=== PATIENT | female | born 1980 | race Caucasian/White ===

== ENCOUNTER 2017-03-27 20:57 | Emergency (ER) | payer BC ==
[~2017-03-27] VITALS: Ht 157.5 cm; Wt 70.0 kg
[~2017-03-27 20:57] MED LIST: ACET-915 PO; ATEN-51 PO; CEPH-443 PO; IBUP-1542 PO; LEVO125T58; METH10TA97 PO; NITR-58 PO
[2017-03-27 21:08] VITALS: Ht 157.5 cm; Wt 70.0 kg
[2017-03-27] MEDS ORDERED: KETOROLAC 30 MG INJ IM STA (23:14)
[2017-03-27] MEDS ORDERED: TRAM50TA2 PO (23:16)
[2017-03-27] MEDS ORDERED: IBUP-1542 PO (23:17)
--- NOTE | 2017-03-27 23:25 | ERD ---
ER Documentation Chief Complaint Date/Time DATE: 03/27/17 TIME: 23:19 Chief Complaint WORSENING LOWER RIGHT BACK PAIN RADIATING TO LEG TONIGHT. HPI Patient is a 36-year-old female with past medical history of hypothyroidism, s/ p cholecystectomy who presents to the emergency department with lower back pain. Patient states pain has been ongoing for the last year. She does not a the pain was significantly worse. Patient states the pain originates in her lower back and radiates down her right leg. Patient says she has been going to physical therapy for the last month and a half. Patient denies any saddle anesthesia, stool incontinence, urinary incontinence, fever, chills, dysuria, frequency, urgency or hematuria. She denies any recent falls or trauma. No recent travel. ROS All systems reviewed and are negative except as per history of present illness. Medications Home Meds Active Scripts Ibuprofen* (Motrin*) 600 Mg Tab, 600 MG PO Q6, #30 TAB Prov:CHRISTINE CHILDERS PA-C 03/27/17 Tramadol HCl (Tramadol HCl) 50 Mg Tablet, 50 MG PO Q4 Y for PAIN, #15 TAB Prov:CHRISTINE CHILDERS PA-C 03/27/17 Ibuprofen* (Motrin*) 600 Mg Tab, 600 MG PO Q6, #20 TAB Prov:CANDICE MORTON NP 08/07/16 Nitrofurantoin Monohyd Macrocr* (Macrobid*) 100 Mg Capsr, 100 MG PO BID for 5 Days, CAP Prov:CANDICE MORTON NP 08/07/16 Cephalexin* (Keflex*) 500 Mg Capsule, 500 MG PO QID for 7 Days, CAP Prov:STEWART AMEZQUITA PA-C 07/19/16 Ibuprofen* (Motrin*) 600 Mg Tab, 600 MG PO Q6H Y for PAIN AND OR ELEVATED TEMP, #30 TAB Prov:STEWART AMEZQUITA PA-C 07/19/16 Ibuprofen* (Motrin*) 600 Mg Tab, 600 MG PO Q6, #30 TAB Prov:ROBERT MADSEN PA-C 07/04/16 Reported Medications Levothyroxine Sodium (Levothroid) 125 Mcg Tablet 02/15/13 Acetaminophen* (Tylenol*) 325 Mg Tab, 325 MG PO 05/23/12 Atenolol* (Atenolol*) 25 Mg Tablet, 25 MG PO 05/23/12 Methimazole* (Tapazole*) 10 Mg Tablet, 10 MG PO 05/23/12 [None] No Conflict Check 04/26/11 Allergies Allergies: Coded Allergies: codeine (Verified Allergy, Mild, TWITCHING OF FACE, 07/04/16) PMhx/Soc History of Surgery: Yes (cholecystectomy) Anesthesia Reaction: No Hx Neurological Disorder: No Hx Respiratory Disorders: No Hx Cardiac Disorders: No Hx Psychiatric Problems: No Hx Miscellaneous Medical Probl: Yes (hypothyroid (synthroid dose increased)) Hx Alcohol Use: No Hx Substance Use: No Hx Tobacco Use: No FmHx Family History: No diabetes Physical Exam Vitals Vital Signs Date Time Temp Pulse Resp B/P Pulse Ox O2 Delivery O2 Flow Rate FiO2 03/28/17 00:21 98.1 85 20 129/99 97 Room Air 03/27/17 21:08 99.4 122 18 148/86 97 Physical Exam GENERAL: Well-developed, well-nourished female. Appears in no acute distress. HEAD: Normocephalic, atraumatic. EYES: Pupils are equally reactive bilaterally. EOMs grossly intact. No conjunctival erythema. ENT: Moist mucous membranes. No uvula deviation. No kissing tonsils. NECK: Supple. No meningismus. Normal range of motion of the neck. LUNG: Clear to auscultation bilaterally. No rhonchi, wheezing, rales or coarse breath sounds. HEART: Regular rate and rhythm. No murmurs, rubs or gallops. ABDOMEN: No scars, ecchymosis or rashes noted. Soft, nontender, and nondistended. Positive bowel sounds in all four quadrants. No rebound tenderness , no guarding. (-) McBurney's point tenderness. No CVA tenderness. BACK: No midline tenderness. Tender palpation of the paraspinous muscles of the right lumbar spine. Positive straight leg raise of the right side. EXTREMITIES: Equal pulses bilaterally. No peripheral clubbing, cyanosis or edema. No unilateral leg swelling. NEUROLOGIC: Alert and oriented. Moving all four extremities without any difficulty. Normal speech. Steady gait. SKIN: Normal color. Warm and dry. No rashes or lesions. Results 24 hrs Current Medications Medications (Trade) Dose Ordered Sig/Margaret Route PRN Reason Start Time Stop Time Status Last Admin Dose Admin Ketorolac Tromethamine (Toradol) 30 mg ONCE STAT IM 03/27/17 23:14 03/27/17 23:15 DC 03/27/17 23:49 Procedures/MDM ED COURSE: The patient was stable throughout ED course. I kept the patient and/or family informed of laboratory and diagnostic imaging results throughout the ED course. MEDICATIONS GIVEN: Toradol IM Patient tolerated medication well with no adverse reactions. Patient reported improvement in pain. MEDICAL DECISION MAKING: This is a 28-year-old female presents with back pain 1 year. Patient states today the pain became significantly worse. Patient states pain radiates down her right leg.. Vital signs were reviewed. Patient was afebrile. Patient denied any saddle anesthesia, urinary incontinence, bowel incontinence, dysuria, hematuria, or recent trauma. Patient denied any falls or trauma, x-ray imaging was indicated at this time. Patient was given Toradol here in the ED for her pain. Given these findings, the patient's presentation is most consistent with lower back pain with sciatica. I have a much lower clinical concern for cauda equine syndrome, spinal fractures, epidural abscess, spinal metastases, osteomyelitis, aortic dissection, ruptured or leaking AA, DJD, UTI, pyelonephritis or nephrolithiasis. PRESCRIPTIONS: Tramadol, ibuprofen DISCHARGE: At this time, patient is stable for discharge and outpatient management. Patient was advised to follow-up with her primary care physician for referral to obtain an MRI on an outpatient basis. RICE therapy and ROM exercises were advised to avoid stiffness. I have instructed the patient to follow-up with his/ her primary care physician in 1-2 days. I have discussed with the patient the possibility of needing to see an 3d specialist for further workup and imaging if the pain persists. I have instructed the patient to promptly return to the ER for any new or worsening symptoms including increased pain, swelling, warmth, urinary incontinence, stool incontinence, weakness or numbness. The patient and/or family expressed understanding of and agreement with this plan. All questions were answered. Home care instructions were provided. Departure Diagnosis: Primary Impression: Back pain Back pain location: low back pain Chronicity: acute Back pain laterality: right Sciatica presence: with sciatica Sciatica laterality: sciatica of right side Qualified Code: M54.41 - Acute right-sided low back pain with right -sided sciatica Condition: Stable Patient Instructions: Back Pain W/ Sciatica Referrals: [facility] YOU HAVE RECEIVED A MEDICAL SCREENING EXAM AND THE RESULTS INDICATE THAT YOU DO NOT HAVE A CONDITION THAT REQUIRES URGENT TREATMENT IN THE EMERGENCY DEPARTMENT. FURTHER EVALUATION AND TREATMENT OF YOUR CONDITION CAN WAIT UNTIL YOU ARE SEEN IN YOUR DOCTORS OFFICE WITHIN THE NEXT 1-2 DAYS. IT IS YOUR RESPONSIBILITY TO MAKE AN APPOINTMENT FOR FOLOW-UP CARE. IF YOU HAVE A PRIMARY DOCTOR --you should call your primary doctor and schedule an appointment IF YOU DO NOT HAVE A PRIMARY DOCTOR YOU CAN CALL OUR PHYSICIAN REFERRAL HOTLINE AT IF YOU CAN NOT AFFORD TO SEE A PHYSICIAN YOU CAN CHOSE FROM THE FOLLOWING [facility] [address] [facility] [address] [facility] [address] [facility] [address] [facility] [address] [address] [facility] [address] [facility] [facility] [address] [facility]. [facility] YOU HAVE RECEIVED A MEDICAL SCREENING EXAM AND THE RESULTS INDICATE THAT YOU DO NOT HAVE A CONDITION THAT REQUIRES URGENT TREATMENT IN THE EMERGENCY DEPARTMENT. FURTHER EVALUATION AND TREATMENT OF YOUR CONDITION CAN WAIT UNTIL YOU ARE SEEN IN YOUR DOCTORS OFFICE WITHIN THE NEXT 1-2 DAYS. IT IS YOUR RESPONSIBILITY TO MAKE AN APPOINTMENT FOR FOLOW-UP CARE. IF YOU HAVE A PRIMARY DOCTOR --you should call your primary doctor and schedule and appointment IF YOU DO NOT HAVE A PRIMARY DOCTOR YOU CAN CALL OUR PHYSICIAN REFERRAL HOTLINE AT . IF YOU CAN NOT AFFORD TO SEE A PHYSICIAN YOU CAN CHOSE FROM THE FOLLOWING [facility]: [facility] [address] [place] [address] [facility] [address] [place] [address] [facility] [address] [place] [address] [facility] Hours: Mon-Fri 9:00 AM - 5:00 PM Additional Instructions: Call your primary care doctor TOMORROW for an appointment during the next 1-2 days.See the doctor sooner or return here if your condition worsens before your appointment time. Follow up with your primary care physician for referral for an MRI on an outpatient basis. CHRISTINE CHILDERS PA-C Mar 27, 2017 23:25
[2017-03-28 00:21] VITALS: BP 129/99; PULSE 85; RESP 20; TEMP 98.1
== END 2017-03-28 00:21 | disposition home or self-care (01) ==
LOC: FTE 20:57
DX: M54.41 Lumbago with sciatica, right side (principal); E03.9 Hypothyroidism, unspecified
CPT/HCPCS: 96372; J1885; Z7502

== ENCOUNTER 2018-07-10 05:59 | Day surgery (SDC) | END 2018-07-10 14:59 | disposition home or self-care (01) ==